=== PATIENT | female | born 1945 | race Caucasian/White ===

== ENCOUNTER 2019-07-20 11:28 | Outpatient (CLI) | payer MEDICARE, BC ==
[~2019-07-20] VITALS: Ht 157.5 cm; Wt 87.7 kg
--- NOTE | ~2019-07-20 | HEMODYNAMI ---
PATIENT:SARA BARRIENTOS MEDICAL RECORD: [id number] : 43 LOCATION:[facility] ADMISSION DATE: 07/20/19 Generatedon:07/20/201914:48 Patient name: SARA BARRIENTOS Patient #: [id number] SSN: [id number] : 1945 Date of study: 07/20/2019 Page: Of Hemodynamic Procedure Report Patient Data Patient Demographics First Name: SARA Gender: Female Last Name: FLOYD : 1945 Middle Initial: FREDI Age: 73 year(s) Patient #: [id number] Race: Unknown SSN: [id number] Additional ID: [id number] Contact details Address: [address] [place] [address] State: [place] City: [place] Zip code: [address] Admission Admission Data Admission Date: 07/20/2019 Admission Time: 11:28 Arrival Date: 07/20/2019 Arrival Time: 0:00 Admit Source: Other Insurance Payor: Private health insurance, Medicare [facility] #: [id number] Height (in.): 61.81 BSA: 1.87 (m2) Height (cm.): 157 BMI: 35.3 (kg/m2) Weight (lbs.): 191.8 Weight (kg.): 87 Lab Results Lab Result Date: 07/20/2019 Lab Result Time: 0:00 Biochemistry Name Units Result Min Max BUN mg/dl 21 --(----)-* 7 18 Creatinine mg/dl 1 --(--*-)-- 0.6 1.3 CBC Name Units Result Min Max Hemoglobin g/dl 13.4 -*(----)-- 13.5 17.5 Procedure Procedure Types Cath Procedure Diagnostic Procedure LHC LH w/Coronaries Procedure Description Procedure Date Procedure Date: 07/20/2019 Procedure Start Time: 14:37 Procedure End Time: 14:46 Procedure Staff Name Function Dm Luna MD Performing Physician Ynes Cardenas RT Monitor Elena Wilson RN Nurse Sharona Olivares RT Scrub Indication Chest pain Procedure Data Cath Procedure Fluoroscopy Diagnostic fluoroscopy Total fluoroscopy Time: 1.6 time: 1.6 min min Diagnostic fluoroscopy Total fluoroscopy dose: 406 dose: 406 mGy mGy Contrast Material Contrast Material Type Amount (ml) Isovue 300 51 Entry Location Entry Primary Successful Side Size Upsize Upsize Entry Closure Succes sful Closure Location (Fr) 1 (Fr) 2 (Fr) Remarks Device Remarks Femoral Right 5 Fr Exoseal artery Estimated blood loss: 10 ml Diagnostic catheters Device Type Used For End Catheter Placement MULTIPACK JL 4.0 5Fr Procedure catheter MULTIPACK 3DRC 5Fr Procedure catheter MULTIPACK Pigtail 5 Fr Ventriculography catheter Procedure Complications No complications Procedure Medications Medication Administration Route Dosage 0.9% NaCl I.V. 100 ml/hr Oxygen etCO2 Nasal cannula 2 l/min Lidocaine 2% added to field 20 Heparin Flush Bag added to field 2 bags (1000units/500ml NS) Versed I.V. 2 mg Fentanyl I.V. 50 mcg Versed I.V. 2 mg Fentanyl I.V. 50 mcg Hemodynamics Rest BSA: 1.87 (m2) HGB: 13.4 (g/dl) O2 Consumption: Estimated: 163.02 (ml/min) O2 Co nsumption indexed: Estimated:87.18 (ml/min/m) Heart Rate: 59 (bpm) Pressure Samples Time Site Value (mmHg) Purpose Heart Use Rate(bpm) 14:42 LV 117/1,16 Snapshot 65 Gradients Valve Time Site Site Mean SEP/DFP Peak To Heart Use 1 2 (mmHg) (sec/min) Peak Rate (mmHg) (bpm) Aortic 14:42 LV AO 72 Snapshots Pre Cath Intra NCS Post Cath Vital Signs Time Heart Resp SPO2 etCO2 NIBP (mmHg) Rhythm Pain Sedation Rate (ipm) (%) (mmHg) Status Level (bpm) 14:24:13 61 10 96 35.2 156/77(114) NSR 0 (11) 10(A) , No pain 14:28:35 61 11 98 37.5 132/73(114) NSR 0 (11) 10(A) , No pain 14:33:34 60 13 98 42.7 Measuring NSR 0 (11) 10(A) , No pain 14:33:48 59 12 98 32.2 160/71(115) SB 0 (11) 10(A) , No pain 14:38:05 59 14 97 41.2 131/66(99) SB 0 (11) 10(A) , No pain 14:42:20 64 13 97 40.4 122/69(92) NSR 0 (11) 10(A) , No pain 14:46:37 60 10 98 40.4 127/59(100) NSR 0 (11) 10(A) , No pain Medications Time Medication Route Dose Verified Delivered Reason Notes Eff ectiveness by by 14:19:08 0.9% NaCl I.V. 100 Dm Elena used for ml/hr Jeremy Wilson tank cleaner 14:19:14 Oxygen etCO2 2 Dm Elena used for Nasal l/min Jeremy Wilson procedure cannula RN 14:19:18 Lidocaine 2% added 20ml Dm Dm for local to vial Jeremy Luna MD anesthetic field 14:19:23 Heparin Flush added 2 Dm Dm used for Bag to bags Jeremy Luna MD procedure (1000units/500ml field NS) 14:36:56 Versed I.V. 2 mg Dm Elena for Jeremy Wilson sedation RN 14:37:01 Fentanyl I.V. 50 Dm Elena for mcg Jeremy Wilson sedation RN 14:42:28 Versed I.V. 2 mg Dm Elena for Jeremy Wilson sedation RN 14:42:35 Fentanyl I.V. 50 Dm Elena for mcg Jeremy Wilson sedation crayon grader Log Time Note 14:12:56 Arrival Date: 07/20/2019 12:00:00 AM 14:13:17 Admit Source: Other 14:13:20 Insurance Payor : Private health insurance, Medicare 14:13:52 Patient Height : 61.81 inches 14:13:57 Patient Weight : 191.8 lbs 14:15:24 Lab Result : Creatinine 1 mg/dl 14:15:24 Lab Result : BUN 21 mg/dl 14:15:24 Lab Result : Hemoglobin 13.4 g/dl 14:16:08 Indication : Chest pain 14:16:23 Procedure Status Elective Heart Cath (OP). 14:19:00 Vital chart was started 14:19:08 0.9% NaCl 100 ml/hr I.V. was administered by Elena Wilson RN; used for procedure; Verbal order read back and verified. 14:19:14 Oxygen 2 l/min etCO2 Nasal cannula was administered by Elena Wilson RN; used for procedure; Verbal order read back and verified. 14:19:18 Lidocaine 2% 20ml vial added to field was administered by Dm Luna MD; for local anesthetic; Verbal order read back and verified. 14:19:23 Heparin Flush Bag (1000units/500ml NS) 2 bags added to field was administered by Dm Luna MD; used for procedure; Verbal order read back and verified. 14:33:20 Elena Wilson RN sent for patient. Start room use. 14:33:26 Time tracking: Regular hours (M-F 7:00 - 5:00) 14:33:30 Plan of Care:Hemodynamics will remain stable., Cardiac rhythm will remain stable., Comfort level will be maintained., Respiratory function will remain adequate., Patient/ family verbilizes understanding of procedure., Procedure tolerated without complication., Recovers from procedure without complications.. 14:33:37 Patient received from Pre/Post Procedure Room to [facility] 2 Alert and oriented. Tansferred to table in Supine position. 14:33:40 Warm blankets applied, and mary hugger turned on for patient comfort. 14:33:42 Correct patient and procedure confirmed by team. 14:33:44 ECG and BP/O2 sat monitors applied to patient. 14:33:46 Baseline sample Acquired. 14:33:49 Rhythm: sinus rhythm 14:33:51 Full Disclosure recording started 14:35:23 H&P Date Dictated: 07/13/2019 Within 30 days and on chart.. 14:35:25 Pre-procedure instructions explained to patient. 14:35:27 Family in waiting room. 14:35:28 Patient NPO since Midnight. 14:35:37 Is the patient allergic to Iodine/contrast media? No. 14:35:38 Was the patient premedicated? Yes 14:35:40 Is patient on blood thinner?No 14:35:48 Patient diabetic? Yes. 14:35:49 If diabetic: On Metformin? No 14:35:53 Snore? Yes 14:35:55 Sleep apnea? No 14:36:00 Dentures? No ? 14:36:05 Patient pain scale 0/10 ?. 14:36:13 IV patent on arrival in right antecubital with 0.9% NaCl at [facility]. 14:36:16 Lab results completed and on chart. 14:36:20 Right groin area was prepped with chlora-prep and draped in sterile fashion 14:36:21 Alarms reviewed by R. N. 14:36:21 Sharps counted by scrub and verified by R.N. 14:36:22 Physician arrived 14:36:23 --------ALL STOP TIME OUT------ 14:36:24 Final Timeout: patient, procedure, and site verified with staff and physician. All members of the team are in agreement. 14:36:26 Right groin site verified by team. 14:36:39 Fire Safety Assessment: A--An alcohol-based skin anteseptic being used preoperatively., C--Open oxygen or nitrous oxide is being used., D--An ESU, laser, or fiber-optic light is being used. 14:36:43 Physical assessment completed. ASA score P 3 - A patient with severe systemic disease as per Dm Luna MD. 14:36:56 Versed 2 mg I.V. was administered by Elena Wilson RN; for sedation; Verbal order read back and verified. 14:36:59 3a) 45-59 Moderately reduced kidney function. 14:37:01 Fentanyl 50 mcg I.V. was administered by Elena Wilson RN; for sedation; Verbal order read back and verified. 14:37:03 Maximum allowable contrast dose (3.7 X eGFR X 0.75)158 ml. 14:37:07 Sedation plan: IV Moderate Sedation Medication:Versed, Fentanyl 14:37:12 Use device set Femoral Dx 14:37:14 ACIST Syringe (90520) opened to sterile field. 14:37:14 Bag Decanter (2002) opened to sterile field. 14:37:14 Medline Cath Pack ([id number]) opened to sterile field. 14:37:16 ACIST Hand Control (16929) opened to sterile field. 14:37:16 ACIST Manifold (61525) opened to sterile field. 14:37:17 DIAGNOSTIC Multipack 5Fr catheter set (OG5122) opened to sterile field. 14:37:18 Tegaderm 4 x 4 (1626W) opened to sterile field. 14:37:20 SHEATH 5FR [place] (ZBY030) opened to sterile field. 14:37:20 EMERALD Guide Wire (791-060) opened to sterile field. 14:37:24 Procedure started. 14:37:33 Local anesthetic to right femoral artery with Lidocaine 2% by Dm Luna MD.INITIAL ACCESS ONLY 14:37:43 A 5 Fr sheath was inserted into the Right Femoral artery 14:37:49 j wire advanced. 14:38:11 A MULTIPACK JL 4.0 5Fr catheter was advanced over the wire and used for Procedure. 14:38:14 LCA angiography performed. 14:39:12 Catheter removed. 14:39:24 A MULTIPACK 3DRC 5Fr catheter was advanced over the wire and used for Procedure. 14:39:41 RCA angiography performed. 14:40:18 Catheter removed. 14:41:13 A MULTIPACK Pigtail 5 Fr catheter was advanced over the wire and used for Ventriculography. 14:41:24 LV angiography performed. 14:42:28 Versed 2 mg I.V. was administered by Elena Wilson RN; for sedation; Verbal order read back and verified. 14:42:35 Fentanyl 50 mcg I.V. was administered by Elena Wilson RN; for sedation; Verbal order read back and verified. 14:42:40 EF : 60 % 14:43:00 Catheter removed. 14:43:02 EXOSEAL 5Fr (EX500) opened to sterile field. 14:43:30 Sheath removed intact; hemostasis achieved with Exoseal to the Right Femoral artery. 14:43:32 Procedure ended.(Physican Out) 14:43:45 Fluoroscopy time 01.60 minutes. 14:43:49 Flurop Dose total: 406 14:43:49 Fluoroscopy dose: 406 mGy 14:43:53 Dose Area Product 22150 mGy/cm. 14:44:06 Contrast amount:Isovue 300 51ml. 14:44:08 Maximum allowable dose exceeded? No. 14:44:09 Sharps counted by scrub and verified by R.N. 14:44:10 Insertion/operative site no bleeding no hematoma. 14:44:15 Post-procedure physical assessment completed. ASA score P 2 - A patient with mild systemic disease as per Dm Luna MD. 14:44:18 Post procedure rhythm: unchanged. 14:44:22 Estimated blood loss: 10 ml 14:44:24 Post procedure instruction explained to patient.Patient verbalizes understanding. 14:45:12 Procedure and supply charges have been captured, reviewed, submitted and are correct. 14:45:30 Procedure and supply charges have been captured, reviewed, submitted and are correct. 14:46:05 Procedure and supply charges have been captured, reviewed, submitted and are correct. 14:46:21 Procedure Complication : No complications 14:46:23 Vital chart was stopped 14:46:25 [facility] Findings: mild to moderate CAD (<70%) 14:46:28 See physician's report for complete and final results. 14:46:29 Report given to Pre/Post Procedure Room. 14:46:31 Patient transfered to Pre/Post Procedure Room with Stretcher. 14:46:33 Procedure ended. 14:46:33 Full Disclosure recording stopped 14:46:39 End room use (Document Last) 14:47:25 End room use (Document Last) 14:47:45 End room use (Document Last) Device Usage Item Name Manufacture Quantity Catalog Hospital Part Current Minimal L ot# / Number Charge Number Stock Stock Serial# Code ACIST Acist 1 50016 575861 257634 [id number] 20 Syringe Medical (63747) Systems Inc Bag Microtek 1 2001S 635549 47598 827763 5 Decanter Medical Inc. () Medline Medline 1 [id number] 241433 59718 328158 5 Cath Pack ([id number]) ACIST Hand Acist 1 45008 925736 196619 472885 5 Control Medical (18552) Systems Inc ACIST Acist 1 11705 210049 367580 468967 5 Manifold Medical (57829) Systems Inc DIAGNOSTIC Cardinal 1 [id number] 162257 79209 933368 30 MultipLanguage123 5Fr catheter set (DU9661) Tegaderm 4 3M 1 1626W 850130 430371 884040 5 x 4 (1626W) SHEATH 5FR Terumo 1 DLY676 429972 427937 519380 5 [place] (IFO849) EMERALD Cardinal 1 502-455 425946 535024 636358 5 Guide Wire [employer] (502-455) MULTIPACK Cardinal 1 631284 5 JL 4.0 5Fr Health catheter MULTIPACK Cardinal 1 141955 5 3DRC 5Fr Health catheter MULTIPACK Cardinal 1 419303 5 Pigtail 5 Health Fr catheter EXOSEAL 5Fr Cardinal 1 EX500 131496 922948 593317 10 (EX500) Health Signature Audit [place] Stage Time Signature Unsigned Intra-Procedure 07/20/2019 Ynes Cardenas 2:45:30 PM RT(R) Intra-Procedure 07/20/2019 Elena Wilson 2:46:05 PM RN Intra-Procedure 07/20/2019 Ynes Cardenas 2:47:25 PM RT(R) Intra-Procedure 07/20/2019 Elena Wilson 2:47:45 PM RN Intra-Procedure 07/20/2019 mD Luna MD 2:48:08 PM Signatures Performing Physician : Signature : Dm Luna MD Date : Time : Monitor : Ynes Cardenas Signature : RT Date : Time : Nurse : Elena Wilson RN Signature : Date : Time : [facility] [address] [facility] [place] [address]
[2019-07-20] MEDS ORDERED: FUROSEMIDE40 MG PO (12:06)
[2019-07-20] MEDS ORDERED: BAYER CHEWABLE81 MG PO (12:06)
[2019-07-20] MEDS ORDERED: CLARITIN 10 MG10 MG PO (12:06)
[2019-07-20] MEDS ORDERED: OMEPRAZOLE40 MG PO (12:07)
[2019-07-20] MEDS ORDERED: GLUCOPHAGE500 MG PO (12:07)
[2019-07-20] MEDS ORDERED: TOPROL XL50 MG PO (12:07)
[2019-07-20] MEDS ORDERED: LIPITOR20 MG PO (12:08)
[2019-07-20] MEDS ORDERED: DIOVAN320 MG PO (12:08)
[2019-07-20] MEDS ORDERED: K-TAB10 MEQ PO (12:08)
[2019-07-20] MEDS ORDERED: SINGULAIR10 MG PO (12:09)
[2019-07-20] MEDS ORDERED: SYMBICORT 16010.2 GM INH (12:09)
[2019-07-20] MEDS ORDERED: CARDURA8 MG PO (12:09)
[2019-07-20] MEDS ORDERED: FLOVENT DISKU100 MCG INH (12:10)
[2019-07-20] MEDS ORDERED: ASCORBIC ACID500 MG PO (12:10)
[2019-07-20 12:24] VITALS: BP 139/57; Ht 157.5 cm; Wt 87.7 kg
[2019-07-20 12:32] LABS: BASOPHILS 0.4 % (0-2); EOSINOPHILS 1.9 % (0-7); HEMATOCRIT 40.2 % (36.0-48.0); HEMOGLOBIN 13.4 g/dL (12-16); IMMATURE GRANULOCYTES 0.3 % (0-5); MCHC 33.3 g/dL (31.0-37.0); MEAN PLATELET VOLUME 9.9 fL (7.4-10.4); MONOCYTES 8.5 % (2-11); NEUTROPHILS 58.9 % (40-80); PLATELET COUNT 180 10x3/uL (130-400); RBC 4.62 10x6/uL (4.00-5.40); RDW 13.4 % (11.5-14.5); WBC 7.5 10x3/uL (4.8-10.8)
[2019-07-20 12:56] LABS: ANION GAP 12.1 mmol/L (8-16); CALCIUM 9.3 mg/dL (8.5-10.1); CARBON DIOXIDE 29.6 mmol/L (21.0-32.0); CHOL - HDL RATIO 2.7 ratio (2.3-4.1); LDL-HDL RATIO 1.1 ratio (1.5-3.5); POTASSIUM - SERUM 3.7 mmol/L (3.5-5.1)
--- NOTE | 2019-07-20 15:00 | NUR ---
PT RECEIVED BACK TO ROOM 3 VIA STRETCHER FROM [employer] [facility]. PT VERY DROWSY BUT VERALLY AROUSABLE. PT DENIES PAIN OR DISCOMFORT. IV PATENT INFUSING VIA ORDERS PER R ARM. PT PLACED ON CARDIAC MONITORS AND O2 VIA NC AT 2L. HR NSR RATE 75, BP 140/66, RR 15, SAT 98. R GROIN SOFT, DRESSING CDI NO S/S HEMATOMA. LEG PINK AND WARM, PEDAL PULSES PALPABLE. PT INSTRUCTED TO KEEP HEAD FLAT AND LEG STRAIGHT, SHE VERBALIZED UNDERSTANDING. FAMILY AT BS, CALL LIGHT IN REACH
--- NOTE | 2019-07-20 15:30 | NUR ---
PT RESTING COMFORTABLY, R GROIN SOFT DRESSING CDI NO S/S HEMATOMA. PEDAL PULSES PALPABLE. VSS. PO FLUIDS GIVEN. SON AT BS, CALL LIGHT IN REACH
--- NOTE | 2019-07-20 16:15 | NUR ---
PT DOING WELL, R GROIN SOFT, DRESSING CDI NO S/S HEMATOMA NOTED. TOLERATED PO SOLIDS AND FLUIDS W/O NAUSEA. HOB ELEVATED MORE FOR PT COMFORT. SON AT BS, CALL LIGHT IN REACH
--- NOTE | 2019-07-20 16:48 | NUR ---
DISCHARGE INSTRUCTIONS REVIEWED W PT AND SON BOTH VERBALIZED UNDERSTANDING. IV REMOVED W CATH INTACT, R GROIN SOFT, DRESSING CDI NO S/S HEMATOMA. MONITORS REMOVED AND PT UP TO DRESS FOR DISCHAR
--- NOTE | 2019-07-20 16:57 | NUR ---
PT AMBULATED TO BR, VOIDING W/O DIFFICULITY. PT THEN DISCHARGED VIA WC TO SON WAITING IN PRIVATE VEHICLE. PT HAD ALL BELONGINGS AND DISCHARGE PAPERWORK
== END 2019-07-20 16:55 | disposition home or self-care (01) ==
LOC: D.CATH 11:28
PROVIDERS: ATTEND Internal Medicine Cardiovascular Disease
DX: I20.0 Unstable angina (principal); I10 Essential (primary) hypertension